=== PATIENT | female | born 1950 | race Caucasian/White ===

== ENCOUNTER 2017-07-13 17:23 | Emergency (ER) | payer MEDICAID ==
[~2017-07-13] VITALS: Ht 162.6 cm; Wt 104.3 kg
[~2017-07-13 17:23] MED LIST: COL100 PO; COLACE100 MG PO; FLA500 PO; GOOD SENSE ASPI81 M3 PO; HYDRALAZINE HCL25 MG PO; HYDROCHLOROTHIA25 MG PO; LAC PO; LAC30L PO; LASIX20 MG PO; LEVAQUIN750 MG PO; LISINOPRIL40 MG PO; MAGL PO; METFORMIN HCL500 MG PO; MOT600 PO; MYL80 CH; NORCO1 TA1 PO; NORCO1 TA2 PO; PRAVACHOL10 MG PO; PRILOSEC OTC20 M1 PO; ROBITUSSIN COU118 ML PO; ZOF4 PO
[2017-07-13 17:38] VITALS: Ht 162.6 cm; Wt 104.3 kg
[2017-07-13 19:50] LABS: PLATELET COUNT 193 x10^3mcL (130-400); RED CELL DISTRIBUTION WIDTH 14.4 % (11.5-14.5)
[2017-07-13 19:53] LABS: microscopic required? YES; urine erythrocyte NEGATIVE (NEGATIVE)
[2017-07-13 20:13] LABS: CALCIUM 8.9 mg/dL (8.5-10.1); CARBON DIOXIDE 28.5 mmol/L (21-32); CHLORIDE SERUM 106 mmol/L (98-107); CREATININE SERUM 0.7 mg/dL (0.6-1.0); GFR1 > 60 mL/min; GLUCOSE SERUM 119 mg/dL (74-106); POTASSIUM SERUM 3.5 mmol/L (3.5-5.1); SODIUM SERUM 144 mmol/L (136-145)
[2017-07-13 20:17] LABS: ALBUMIN 3.5 g/dL (3.4-5.0); ALKALINE PHOSPHATASE 84 U/L (46-116); ALT/SGPT 35 U/L (14-59); AMYLASE 30 U/L (25-115); AST/SGOT 25 U/L (15-37); BILIRUBIN TOTAL 0.29 mg/dL (0.20-1.00); LIPASE 237 IU/L (73-393)
[2017-07-13 23:07] VITALS: BP 146/84
== END 2017-07-13 23:07 | disposition home or self-care (01) ==
LOC: ED 17:23
PROVIDERS: Specialist
DX: R10.9 Unspecified abdominal pain (principal); I10 Essential (primary) hypertension; E11.9 Type 2 diabetes mellitus without complications; E78.00 Pure hypercholesterolemia, unspecified; R11.10 Vomiting, unspecified
CPT/HCPCS: 83880; J1885; J2405; J3010; J7030; Q0092

== ENCOUNTER 2018-03-01 14:52 | Inpatient (IN) | payer MEDICAID ==
[~2018-03-01] VITALS: Ht 157.5 cm; Wt 99.8 kg
[2018-03-01 14:57] VITALS: Ht 157.5 cm; Wt 99.8 kg
[2018-03-01] MEDS ORDERED: METFORMIN HCL500 MG PO (15:53)
[2018-03-01] MEDS ORDERED: AZELASTINE HYDRO6 ML OU (15:54)
[2018-03-01] MEDS ORDERED: HYDROCHLOROTHIA25 MG PO (15:54)
[2018-03-01] MEDS ORDERED: PRILOSEC OTC20 M1 PO (15:54)
[2018-03-01] MEDS ORDERED: NEU300 PO (15:55)
[2018-03-01] MEDS ORDERED: LISINOPRIL40 MG PO (15:56)
[2018-03-01] MEDS ORDERED: ASPIR LOW81 MG PO (15:56)
[2018-03-01] MEDS ORDERED: PRA20 PO (15:56)
[2018-03-01 16:01] LABS: CALCIUM 9.6 mg/dL (8.5-10.1); CARBON DIOXIDE 30.4 mmol/L (21-32); CHLORIDE SERUM 103 mmol/L (98-107); CREATININE SERUM 0.9 mg/dL (0.6-1.0); GFR1 > 60 mL/min; GLUCOSE SERUM 140 mg/dL (74-106); POTASSIUM SERUM 3.5 mmol/L (3.5-5.1); SODIUM SERUM 141 mmol/L (136-145)
[2018-03-01 16:06] LABS: BASOPHIL % 0.5 % (0-2); PLATELET COUNT 211 x10^3mcL (130-400); RED CELL DISTRIBUTION WIDTH 14.4 % (11.5-14.5)
[2018-03-01 17:54] LABS: MAGNESIUM 1.9 mg/dL (1.8-2.4); PHOSPHOROUS 3.9 mg/dL (2.5-4.9)
[2018-03-01 17:56] LABS: CHOLESTEROL/HDL RATIO 4.4
[2018-03-01 18:02] LABS: T3 TOTAL 1.16 ng/mL
[2018-03-01 18:04] LABS: FREE T4 0.92 ng/dL (0.76-1.46); T4(THYROXINE) 9.8 ug/dL (4.7-13.3)
[2018-03-01 18:08] LABS: microscopic required? NO
[2018-03-01 18:14] VITALS: BP 184/75
[2018-03-01 18:19] LABS: UA SPECIFIC GRAVITY 1.015 (1.005-1.035); urine erythrocyte NEGATIVE (NEGATIVE)
[2018-03-01 20:12] VITALS: BP 148/66
[2018-03-02] VITALS (7 sets, daily range): BP systolic 123–153; BP diastolic 69–86
[2018-03-02 06:25] LABS: BASOPHIL % 0.5 % (0-2); PLATELET COUNT 202 x10^3mcL (130-400)
[2018-03-02 06:44] LABS: RED CELL DISTRIBUTION WIDTH 14.8 % (11.5-14.5)
[2018-03-02 07:00] LABS: CALCIUM 9.1 mg/dL (8.5-10.1); CARBON DIOXIDE 29.1 mmol/L (21-32); CHLORIDE SERUM 106 mmol/L (98-107); CREATININE SERUM 0.8 mg/dL (0.6-1.0); GFR1 > 60 mL/min; GLUCOSE SERUM 110 mg/dL (74-106); MAGNESIUM 2.2 mg/dL (1.8-2.4); PHOSPHOROUS 4.4 mg/dL (2.5-4.9); POTASSIUM SERUM 4.1 mmol/L (3.5-5.1); SODIUM SERUM 146 mmol/L (136-145)
[2018-03-03 04:44] VITALS: BP 128/63
[2018-03-03 04:45] VITALS: BP 123/82
[2018-03-03 06:46] LABS: CALCIUM 9.3 mg/dL (8.5-10.1); CARBON DIOXIDE 27.7 mmol/L (21-32); CHLORIDE SERUM 101 mmol/L (98-107); CREATININE SERUM 0.6 mg/dL (0.6-1.0); GFR1 > 60 mL/min; GLUCOSE SERUM 116 mg/dL (74-106); SODIUM SERUM 136 mmol/L (136-145)
[2018-03-03 06:55] LABS: BASOPHIL % 0.7 % (0-2); PLATELET COUNT 206 x10^3mcL (130-400)
[2018-03-03 07:02] LABS: RED CELL DISTRIBUTION WIDTH 14.8 % (11.5-14.5)
[2018-03-03 08:34] VITALS: BP 143/52
[2018-03-03 12:25] VITALS: BP 140/74
[2018-03-03 13:53] VITALS: BP 140/74
== END 2018-03-03 15:59 | disposition home or self-care (01) | DRG 243 ==
LOC: ED 14:52 → DU 17:05
PROVIDERS: Emergency Medicine; General Practice
DX: K21.9 Gastro-esophageal reflux disease without esophagitis (principal); D68.69 Other thrombophilia; M94.0 Chondrocostal junction syndrome [Tietze]; E11.65 Type 2 diabetes mellitus with hyperglycemia; K59.00 Constipation, unspecified; I10 Essential (primary) hypertension; E78.5 Hyperlipidemia, unspecified; Z79.82 Long term (current) use of aspirin; Z68.38 Body mass index [BMI] 38.0-38.9, adult; Z79.84 Long term (current) use of oral hypoglycemic drugs
CPT/HCPCS: 82962; 83880; 84439; 90658; A9500; J2785; J3010; Q0092

== ENCOUNTER 2018-11-08 08:00 | Emergency (ER) | payer MEDICAID ==
[~2018-11-08] VITALS: Ht 152.4 cm; Wt 94.3 kg
[~2018-11-08 08:00] MED LIST changes: +ASPIR LOW81 MG PO; +AZELASTINE HYDRO6 ML OU; +NEU300 PO; +PRA20 PO
[2018-11-08 08:05] VITALS: Ht 152.4 cm; Wt 94.3 kg
[2018-11-08 09:02] LABS: BASOPHIL % 0.4 % (0-2); PLATELET COUNT 207 x10^3mcL (130-400); RED CELL DISTRIBUTION WIDTH 13.7 % (11.5-14.5)
[2018-11-08 09:29] LABS: CALCIUM 9.5 mg/dL (8.5-10.1); CARBON DIOXIDE 30.1 mmol/L (21-32); CHLORIDE SERUM 106 mmol/L (98-107); CREATININE SERUM 0.7 mg/dL (0.6-1.0); GFR1 > 60 mL/min; GLUCOSE SERUM 129 mg/dL (74-106); POTASSIUM SERUM 4.7 mmol/L (3.5-5.1); SODIUM SERUM 142 mmol/L (136-145)
[2018-11-08 09:41] LABS: ALBUMIN 3.6 g/dL (3.4-5.0); ALKALINE PHOSPHATASE 88 U/L (46-116); ALT/SGPT 33 U/L (14-59); AST/SGOT 21 U/L (15-37); BILIRUBIN TOTAL 0.4 mg/dL (0.20-1.00); TOTAL PROTEIN, SERUM 7.3 g/dL (6.4-8.2)
[2018-11-08 10:22] VITALS: BP 134/77
== END 2018-11-08 10:22 | disposition home or self-care (01) ==
LOC: ED 08:00
PROVIDERS: Emergency Medicine
DX: R42 Dizziness and giddiness (principal); R53.1 Weakness; I10 Essential (primary) hypertension; E11.9 Type 2 diabetes mellitus without complications; E78.00 Pure hypercholesterolemia, unspecified; Z90.49 Acquired absence of other specified parts of digestive tract
CPT/HCPCS: 36415; Q0092

== ENCOUNTER 2019-08-05 11:28 | Emergency (ER) | payer MEDICAID ==
[~2019-08-05] VITALS: Ht 160 cm; Wt 103.0 kg
[2019-08-05 11:59] VITALS: BP 171/71; Ht 160 cm; Wt 103.0 kg
== END 2019-08-05 12:33 | disposition home or self-care (01) ==
LOC: ED 11:28
DX: R05 Cough (principal); R10.13 Epigastric pain; I10 Essential (primary) hypertension; E11.9 Type 2 diabetes mellitus without complications; Z98.890 Other specified postprocedural states; Z90.49 Acquired absence of other specified parts of digestive tract

== ENCOUNTER 2019-11-03 06:20 | Emergency (ER) | payer SELFPAY ==
[~2019-11-03] VITALS: Ht 157.5 cm; Wt 108.1 kg
[2019-11-03 06:24] VITALS: Ht 157.5 cm; Wt 108.1 kg
[2019-11-03 07:10] LABS: BASOPHIL % 0.5 % (0-2); PLATELET COUNT 144 x10^3mcL (130-400); RED CELL DISTRIBUTION WIDTH 13.4 % (11.5-14.5)
[2019-11-03 07:41] LABS: ALBUMIN 3.5 g/dL (3.4-5.0); ALKALINE PHOSPHATASE 69 U/L (46-116); ALT/SGPT 62 U/L (14-59); AST/SGOT 47 U/L (15-37); BILIRUBIN TOTAL 0.41 mg/dL (0.20-1.00); CALCIUM 8.4 mg/dL (8.5-10.1); CHLORIDE SERUM 104 mmol/L (98-107); CREATININE SERUM 0.7 mg/dL (0.6-1.0); GFR1 > 60 mL/min; GLUCOSE SERUM 172 mg/dL (74-106); SODIUM SERUM 141 mmol/L (136-145); TOTAL PROTEIN, SERUM 6.4 g/dL (6.4-8.2)
[2019-11-03 10:07] VITALS: BP 118/83
== END 2019-11-03 10:07 | disposition home or self-care (01) ==
LOC: ED 06:20
PROVIDERS: Emergency Medicine
DX: R60.9 Edema, unspecified (principal); M19.90 Unspecified osteoarthritis, unspecified site; I10 Essential (primary) hypertension; E11.9 Type 2 diabetes mellitus without complications; E78.00 Pure hypercholesterolemia, unspecified; Z90.49 Acquired absence of other specified parts of digestive tract
CPT/HCPCS: 36415; 83880; Q0092

== ENCOUNTER 2020-01-16 18:53 | Emergency (ER) | payer MEDICAID ==
[~2020-01-16] VITALS: Ht 160 cm; Wt 100.7 kg
[2020-01-16 19:12] VITALS: Ht 160 cm; Wt 100.7 kg
[2020-01-16 20:22] LABS: BASOPHIL % 0.2 % (0-2); PLATELET COUNT 151 x10^3mcL (130-400); RED CELL DISTRIBUTION WIDTH 13.4 % (11.5-14.5)
[2020-01-16 20:38] LABS: CALCIUM 8.9 mg/dL (8.5-10.1); CARBON DIOXIDE 20.4 mmol/L (21-32); CHLORIDE SERUM 100 mmol/L (98-107); CREATININE SERUM 0.6 mg/dL (0.6-1.0); GFR1 > 60 mL/min; GLUCOSE SERUM 152 mg/dL (74-106); POTASSIUM SERUM 4.1 mmol/L (3.5-5.1); SODIUM SERUM 138 mmol/L (136-145)
[2020-01-16 20:48] LABS: ALKALINE PHOSPHATASE 97 U/L (46-116); ALT/SGPT 94 U/L (14-59); AST/SGOT 124 U/L (15-37); BILIRUBIN TOTAL 0.5 mg/dL (0.20-1.00); LIPASE 200 IU/L (73-393); TOTAL PROTEIN, SERUM 6.8 g/dL (6.4-8.2)
[2020-01-16 20:51] LABS: ALBUMIN 3.3 g/dL (3.4-5.0)
[2020-01-16 22:00] VITALS: BP 158/84
== END 2020-01-16 22:15 | disposition home or self-care (01) ==
LOC: ED 18:53
PROVIDERS: Emergency Medicine
DX: K29.70 Gastritis, unspecified, without bleeding (principal); I10 Essential (primary) hypertension; E11.9 Type 2 diabetes mellitus without complications; E78.00 Pure hypercholesterolemia, unspecified; Z90.49 Acquired absence of other specified parts of digestive tract; Z98.890 Other specified postprocedural states
CPT/HCPCS: Q0162